=== PATIENT | female | born 1965 | race Caucasian/White ===

== ENCOUNTER 2017-06-06 05:17 | Inpatient (IN) | payer OTHER ==
[2017-05-31 15:59] VITALS: BMI 28.0
--- NOTE | 2017-05-31 16:24 | PAT Medication Instructions ---
Service Date May 31, 2017. Current Home Medication List Celecoxib (CeleBREX), 200 MG PO ON HOLD Medication Instructions For Your Scheduled Surgery - Follow your surgeon's instructions for: Celecoxib (CeleBREX), 200 MG PO ON HOLD If you have any questions please call us at [phone] or [phone] or [phone]
[2017-05-31 16:29] LABS: BASO % 0.3 %; BASO ABS # 0.02 K/uL (0-0.2); EOS % 1.4 %; EOS ABS # 0.11 K/uL (0-0.5); HEMATOCRIT 39.2 % (37-47); HEMOGLOBIN 13.3 g/dL (12.0-16.0); IG# 0.01 K/uL (0.00-0.02); LYMPH % 38.2 %; LYMPH ABS # 2.98 K/uL (1.2-3.4); MEAN CELL VOLUME 84.3 fL (80-100); MEAN CORPUSCULAR HEMOGLOBIN 28.6 pg (25-34); MEAN CORPUSCULAR HGB CONC 33.9 g/dl (32-36); MEAN PLATELET VOLUME 8.6 fL (7.4-10.4); MONO % 9.4 %; MONO ABS # 0.73 K/uL (0.11-0.59); NEUT % 50.6 %; NEUT ABS # 3.95 K/uL (1.4-6.5); PLATELET COUNT 251 K/uL (130-400); RED CELL DISTRIBUTION WIDTH CV 13.4 % (11.5-14.5); RED CELL DISTRIBUTION WIDTH SD 40.7 fL (36.4-46.3)
[2017-05-31 16:45] LABS: PTT PATIENT 25.3 SECONDS (21.0-31.0)
[2017-05-31 16:48] LABS: ALBUMIN 3.6 gm/dl (3.4-5.0); CALCIUM 8.8 mg/dl (8.5-10.1); CREATININE 0.82 mg/dl (0.60-1.20); POTASSIUM 3.7 mmol/L (3.5-5.1)
--- NOTE | 2017-05-31 16:51 | DIAGNOSTIC IMAGING REPORT ---
CHEST 2 VIEWS ROUTINE CLINICAL HISTORY: Preoperative evaluation. COMPARISON STUDY: No previous studies for comparison. FINDINGS: Lung volumes are normal. Lungs are clear. No pneumothorax or pleural effusion is noted. Pulmonary vascularity is normal. Cardiac size is within normal limits. Mediastinal contours are unremarkable. IMPRESSION: No acute cardiopulmonary findings. Electronically signed by: Ryland Holbrook M.D. 05/31/2017 4:50 PM Dictated Date/Time: 05/31/2017 4:49 PM
[2017-06-01 06:27] LABS: HEMOGLOBIN A1C 5.2 % (4.5-5.6)
--- NOTE | 2017-06-02 15:02 | HISTORY & PHYSICAL EXAMINATION ---
DATE OF ADMISSION: 06/06/2017 CHIEF COMPLAINT: Left hip pain. HISTORY OF PRESENT ILLNESS: Ms. Sepulveda is a 51-year-old female with a 1 year history of left hip pain. The patient rates her pain is 10/10. She has pain with her daily activities. She has limited standing and walking tolerance. Pain is worse with weightbearing. The patient has had home exercise program and NSAIDS without relief. She has failed conservative treatment and is scheduled for left hip replacement. PAST MEDICAL HISTORY: Newly diagnosed hep C. She denies heart disease, diabetes or DVT. PAST SURGICAL HISTORY: Negative. SOCIAL HISTORY: The patient drinks 12 drinks per week. She smokes 1-2 cigarettes per day. She lives in a 2-story home. She lives with her granddaughter and her boyfriend. She is currently not working. FAMILY HISTORY: Negative for DVT. MEDICATIONS: Celebrex and Motrin. ALLERGIES: None. REVIEW OF SYSTEMS: See HPI. Ten other systems reviewed, all negative. PHYSICAL EXAMINATION: VITAL SIGNS: Height 5 feet 7, weight 171 pounds, BMI 27. GENERAL: This is a well-developed, well-nourished female who is alert and oriented x3. Mood and affect are appropriate. HEENT: Normocephalic, atraumatic. Mucous membranes are moist and intact. NECK: Supple without lymphadenopathy. HEART: Regular rate and rhythm without murmurs, rubs or gallops. LUNGS: Clear to auscultation without wheezes or rhonchi. ABDOMEN: Soft and nontender. Bowel sounds are equal and active. EXTREMITIES: No ecchymosis, redness or warmth. Range of motion of the hip is decreased range of motion and reproduces pain significantly in the joint. Her left lower extremity is shortened. She walks with an antalgic gait. X-RAY EXAMINATION: AP and lateral views showed joint space narrowing and osteophyte formation with cystic formation. IMPRESSION: Degenerative joint disease, left hip with avascular necrosis. PLAN: The patient will be admitted for a left total hip arthroplasty with Dr. Schroeder. We will plan on aspirin for DVT prophylaxis. The patient will have [facility] for home physical therapy.
[2017-06-06] VITALS (10 sets, daily range): BP systolic 122–172; BP diastolic 71–97; PULSE 61–90; TEMP 36.4–37; O2SAT 97–100; Ht 165.1 cm; Wt 77.2 kg
[~2017-06-06] VITALS: Ht 165.1 cm; Wt 77.2 kg
[~2017-06-06 05:17] MED LIST: CLB/200 PO
[2017-06-06] MEDS ORDERED: LACTATED RINGER'S 1000ML 500 ML IV SCH (06:00)
[2017-06-06] MEDS ORDERED: DEXAMETHASONE 4 MG TAB PO SCH (06:00)
[2017-06-06] MEDS ORDERED: FAMOTIDINE 20 MG TAB PO SCH (06:00)
[2017-06-06] MEDS ORDERED: ROPIVACAINE 5MG/ML 30 ML 150 MG, BUPIVACAINE 0.5% MPF INJ 30 ML, EpINEphrine HCL INJ 0.... INFIL SCH ×15 (06:00)
[2017-06-06] MEDS ORDERED: GABAPENTIN 300 MG CAP PO SCH (06:00)
[2017-06-06] MEDS ORDERED: CEFAZOLIN 1000MG IV PUSH 7.5 ML IV SCH (06:00)
[2017-06-06] MEDS ORDERED: ACETAMINOPHEN 500 MG TAB PO SCH (06:00)
[2017-06-06] MEDS ORDERED: CeleBREX 200 MG CAP PO SCH (06:00)
[2017-06-06] MEDS ORDERED: LACTATED RINGER'S 1000ML 1,000 ML IV SCH (06:00)
[2017-06-06] MEDS ORDERED: BUPIVACAINE 0.5 % 5 MG/1 ML PF 10ML VIAL ONE (06:29)
[2017-06-06] MEDS ORDERED: EpHEDrine SULFATE 50MG/5ML SYR ONE (06:59)
[2017-06-06] MEDS ORDERED: PROPOFOL IV EMULSION 10 MG/ML 20 ML VIAL ONE (06:59)
[2017-06-06] MEDS ORDERED: MIDAZOLAM HCL 1 MG/ML 2ML VIAL ONE ×2 (06:59→07:00)
[2017-06-06] MEDS ORDERED: LIDOCAINE HCL 2% 2 ML VIAL (20MG/ML) ONE (06:59)
[2017-06-06] MEDS ORDERED: FENTANYL CITRATE INJ 50 MCG/1 ML 2 ML VIAL ONE (06:59)
--- NOTE | 2017-06-06 07:04 | History & Physical Bridge Note ---
H&P Re-Evaluation Bridge Note: I have examined the patient, reviewed the History & Physical and in the interval since the performance of the History & Physical I have noted the following changes of clinical significance: No changes noted
[2017-06-06] MEDS ORDERED: POVIDONE-IODINE OP SOLN 30 ML BTL ONE (07:07)
[2017-06-06] MEDS ORDERED: BACITRACIN 50000 UNIT VIAL ONE (07:07)
[2017-06-06] MEDS: TRANEXAMIC ACID INJ 1,000 MG x 2 Bags IV SCH ×4 (07:31→14:16)
[2017-06-06] MEDS ORDERED: EpHEDrine SULFATE INJ 50 MG/ML AMP IV PRN ×2 (09:00)
[2017-06-06] MEDS ORDERED: PHENYLEPHRINE 100MCG/ML 5ML SYR IV PRN ×2 (09:00)
[2017-06-06] MEDS ORDERED: ONDANSETRON INJ 2 MG/ML 2 ML VIAL IV PRN ×2 (09:00)
[2017-06-06] MEDS ORDERED: ATROPINE SULFATE 0.1 MG/ML 5ML SYR IV PRN ×2 (09:00)
[2017-06-06] MEDS ORDERED: HYDROmorphone INJ 2 MG/ML SYR/VIAL IV PRN ×2 (09:00)
--- NOTE | 2017-06-06 09:29 | [facility] Post Operative Brief Note ---
Immediate Operative Summary Operative Date June 06, 2017. Pre-Operative Diagnosis Degenerative joint disease, left hip with avascular necrosis. Post-Operative Diagnosis Left Hip DJD, AVN Procedure(s) Performed Left EVETTE Surgeon Dr. Gunjan Schroeder Bookkeeping Machine Mechanic Surgeon(s) Aguilar Lott PA-C Estimated Blood Loss 350 Findings Consistent with Post-Op Diagnosis Fluids (cc crystalloids) 1200 Specimens femoral head Drains None Anesthesia Type MAC Spinal Regional Complication(s) none Disposition Disposition: Recovery Room / PACU
[2017-06-06] MEDS ORDERED: OXYCODONE HCL IR 5 MG TAB (IMMEDIATE RELEASE) PO PRN (09:45)
[2017-06-06] MEDS ORDERED: LORAZEPAM INJ 0.5 MG in SYRINGE 0.25 ML IV PRN (09:45)
[2017-06-06] MEDS ORDERED: MoRPHine SULFATE 4 MG/ML 1 ML CARP\\VIAL IV PRN (09:45)
--- NOTE | 2017-06-06 09:48 | [facility] Operative Report ---
Operative Report Operative Date June 06, 2017. Pre-Operative Diagnosis Degenerative joint disease, left hip with avascular necrosis. Post-Operative Diagnosis Degenerative joint disease, left hip with avascular necrosis. Procedure(s) Performed Left Total Hip Arthoplasty Surgeon Dr. Gunjan Schroeder Machine Icer Surgeon(s) Aguilar Lott PA-C Estimated Blood Loss 350mL Findings See dictated op note Fluids 1200 Specimens A: Left Femoral Head Drains None Anesthesia Type MAC Spinal Regional Complication(s) none Disposition Recovery Room / PACU Indications The patient is a 51-year-old female who presents with severe progressive left hip DJD and AVN with femoral head collapse who has failed outpatient conservative treatments. I indicated the patient for a total hip replacement and the risks and benefits were explained in detail which included but not limited to infection, bleeding, blood clot, damage to surrounding bone, nerves, vessels, soft tissue, hip dislocation, failure of the prosthesis, leg length discrepancy, need for additional surgery and . The patient agreed to proceed with replacement of the hip and informed consent was obtained. Appropriate clearances were obtained. Description of Procedure Following induction of adequate spinal anesthesia, the patient was transferred to the OR table and placed in lateral decubitus position with right hip down. The left hip was prepped and draped in the typical sterile fashion and a posterolateral/Arielle-Langenbeck incision was made. Subcutaneous tissue was sharply dissected. Electrocautery was utilized for hemostasis. The fascia was incised throughout the length of the wound and retracted with the Charnley retractor. The bursa was taken down and the short external rotators were identified. The piriformis was tagged with #1 Vicryl. The short external rotators and capsule were divided from the posterior aspect of the femur using electrocautery. The posterior capsule was tagged with #1 Vicryl. Both external rotators and posterior capsule were swept posterior and protected, along with protecting the sciatic nerve. The hip was dislocated by flexion and internally rotation in a controlled manner and exposure of the femoral neck was gained with an old-style Hohmann and a blunt cobra retractor. A femoral cutting guide was utilized for making the appropriate level femoral neck cut with reciprocating saw. The femoral head was removed, measured and reserved on the back table. Next, attention was turned to the acetabulum. A posterior and anterior offset retractor was placed to gain adequate exposure. Acetabular labrum as well as posterior capsule elements were removed using electrocautery and forceps. Fovea centralis was cleared of all soft tissue. Sequential reaming was performed starting at 44 mm and carried up to a 49 mm and decision was made to proceed with impaction of a 50 mm trabecular metal cup. This was impacted and held using a single 35 mm bone screw. The trial acetabular liner was placed at this time. Next, attention was turned to the proximal femur where a Bovie and pickup was used to further clear short external rotators from their insertion on the femur. Box osteotome and canal finder was used to gain access to the femoral canal and the lateral reamer on power was used to further open the proximal lateral canal. Sequentially rasping was carried up to a 6 which gave good fit and fill of the proximal femur. A trial reduction was carried out with a standard offset femoral neck component a 36+3.5 mm femoral head. The trial reduction was stable in all degrees of rotation with no [id number] impingement. The hip was dislocated, trial components were removed and access to the acetabulum was re-established. The trial liner was removed and the cup was irrigated to ensure all debris was removed. The final acetabular liner was inserted and properly seated in the cup. Access to the femur was once more gained and the size 6 femoral stem with standard offset was impacted into position. The hip was once more assessed with the 36+3.5 mm femoral head. Stability was accessed and found to be excellent with equal leg lengths. The hip was dislocated for the last time and the final 36+3.5 ceramic femoral head was impacted in place and the hip was reduced. Range of motion was checked once again and found to be stable. The wound was copiously irrigated with sterile saline solution. The chava- incisional soft tissue was injected utilizing [place] ortho mix which includes a combination of Ropivicaine 0.5% 150mg, Bupivicaine 0.5%/Epinephrine 1 :200,000 30ml, Toradol 30mg, Dexamethasone 4mg, Ketamine 10mg, Clonidine 100mcg and NSS 30ml Orthomix solution. The piriformis, external rotators and capsule were repaired to the greater trochanter through bone tunnels using #5 FiberWire. The fascia was closed using #1 Vicryl, subcutaneous tissue was closed using 2-0 Vicryl, and skin was closed with 3-0 V-lock suture and Dermabond Prineo. Sterile dressings were applied which included nisa, 4x4s and tegaderm adhesive dressing. The patient tolerated the procedure well and was transported to PACU in stable condition. Due to the complex nature of the procedure, the entire surgery was performed with the operational assistance of Leela Lott PA-C. The content assistant, under direct supervision, was involved in the actual performance of all aspects of the surgical procedure including patient positioning, hemostasis, tissue retraction, instrument management and wound closure. I attest to the content of the Intraoperative Record and any orders documented therein. Any exceptions are noted below.
--- NOTE | 2017-06-06 10:26 | Anesthesiology Progress Note ---
Anesthesia Post Op Note Date & Time June 06, 2017 at 10:26 Vital Signs Pain Intensity: 0 Vital Signs Past 12 Hours Date Time Temp Pulse Resp B/P (MAP) Pulse Ox O2 Delivery O2 Flow Rate FiO2 06/06/17 10:20 69 12 115/66 100 Nasal Cannula 3 06/06/17 10:10 55 12 111/71 100 Oxymask 10 06/06/17 10:00 55 12 127/66 100 Oxymask 10 06/06/17 09:52 36.2 69 120/75 16 Oxymask 10 06/06/17 06:00 36.8 90 20 172/97 100 Room Air Notes Mental Status: alert / awake / arousable, participated in evaluation Pt Amnestic to Procedure: Yes Nausea / Vomiting: adequately controlled Pain: adequately controlled Airway Patency, RR, SpO2: stable & adequate BP & HR: stable & adequate Hydration State: stable & adequate Anesthetic Complications: no major complications apparent
--- NOTE | 2017-06-06 10:37 | DIAGNOSTIC IMAGING REPORT ---
SINGLE VIEW PELVIS; SINGLE VIEW LEFT HIP CLINICAL HISTORY: Postoperative examination. FINDINGS: An AP portable view of the hips and pelvis with a crosstable lateral portable view of the left hip are obtained. A bipolar left hip arthroplasty is in near-anatomic alignment. A single cortical lag screw transfixes the acetabular cup. No acute fracture is identified. There are expected postoperative changes overlying the left hip including skin clips, subcutaneous gas, and soft tissue swelling. Moderate arthritic changes noted in the right hip. A small phlebolith is observed in the pelvis. IMPRESSION: Expected postoperative findings status post left hip arthroplasty. No acute fracture is seen. Electronically signed by: Yasmany Mcguire M.D. 06/06/2017 10:35 AM Dictated Date/Time: 06/06/2017 10:35 AM
[2017-06-06] MEDS: KETOROLAC TROMETHAMINE 30 MG/ML VIAL IV. SCH ×2 (14:17→21:00)
[2017-06-06] MEDS: SODIUM CHLORIDE 0.9% 1000ML 1,000 ML IV SCH ×2 (14:17→21:00)
[2017-06-06] MEDS: ACETAMINOPHEN 500 MG TAB PO SCH ×2 (14:18→21:02)
[2017-06-06] MEDS: CEFAZOLIN IV 1,000 MG in SYRINGE 0 ML IV SCH (15:47)
--- NOTE | 2017-06-06 17:49 | Orthopedic Progress Note ---
Orthopedic Progress Note Date of Service June 06, 2017. Subjective Additional Notes: Postoperative progress note Patient seen at bedside and ambulating in room, doing well, no acute issues, pain well controlled. Objective No apparent distress, alert and oriented 3 Left lower extremity is neurovascularly sensory intact, +2 dorsalis pedis pulse , compartments soft nontender, dressing clean dry and intact. Date Time Temp Pulse Resp B/P (MAP) Pulse Ox O2 Delivery O2 Flow Rate FiO2 06/06/17 15:40 37.0 82 17 127/76 (93) 99 Room Air 06/06/17 14:10 82 15 124/76 (92) 100 06/06/17 13:10 79 15 134/85 (101) 100 06/06/17 12:08 61 18 135/81 (99) 100 Nasal Cannula 2.0 06/06/17 11:38 63 18 122/80 (94) 100 Nasal Cannula 3.0 06/06/17 11:10 100 Nasal Cannula 3.0 06/06/17 11:10 100 Nasal Cannula 3.0 06/06/17 11:07 36.4 67 15 145/82 (103) 100 Nasal Cannula 3.0 06/06/17 10:50 37.6 55 14 141/78 100 Nasal Cannula 3 06/06/17 10:40 67 14 134/78 100 Nasal Cannula 3 06/06/17 10:30 52 14 144/77 100 Nasal Cannula 3 06/06/17 10:20 69 12 115/66 100 Nasal Cannula 3 06/06/17 10:10 55 12 111/71 100 Oxymask 10 06/06/17 10:00 55 12 127/66 100 Oxymask 10 06/06/17 09:52 36.2 69 120/75 16 Oxymask 10 06/06/17 06:00 36.8 90 20 172/97 100 Room Air Assessment & Plan Assessment: Status post left posterior total hip arthroplasty Plan: -Ancef x24 -DVT prophylaxis - ASA twice daily -Weight-bear as tolerates left lower extremity -Posterior hip precautions -PT/OT -A.m. labs -Postop x-ray: Well aligned well fixed left total hip prosthesis without evidence of fracture or dislocation
[2017-06-06] MEDS ORDERED: SENNA 8.6 MG TAB PO SCH (21:00)
[2017-06-06] MEDS: ASPIRIN 325 MG ECTAB PO SCH (21:01)
[2017-06-06] MEDS: DOCUSATE SODIUM 100 MG CAP PO SCH (21:01)
[2017-06-07] MEDS: CEFAZOLIN IV 1,000 MG in SYRINGE 0 ML IV SCH (00:02)
[2017-06-07 00:05] VITALS: O2SAT 100
[2017-06-07] MEDS: KETOROLAC TROMETHAMINE 30 MG/ML VIAL IV. SCH ×2 (02:31→07:39)
[2017-06-07 03:24] VITALS: BP 117/72; PULSE 93; TEMP 37.1; O2SAT 98
[2017-06-07] MEDS: ACETAMINOPHEN 500 MG TAB PO SCH ×2 (05:44→12:53)
[2017-06-07 06:49] LABS: BASO % 0.1 %; BASO ABS # 0.01 K/uL (0-0.2); EOS % 0.2 %; EOS ABS # 0.02 K/uL (0-0.5); HEMATOCRIT 30.2 % (37-47); HEMOGLOBIN 10.2 g/dL (12.0-16.0); IG# 0.04 K/uL (0.00-0.02); LYMPH % 18.9 %; LYMPH ABS # 2.43 K/uL (1.2-3.4); MEAN CELL VOLUME 84.1 fL (80-100); MEAN CORPUSCULAR HEMOGLOBIN 28.4 pg (25-34); MEAN CORPUSCULAR HGB CONC 33.8 g/dl (32-36); MONO % 10.6 %; MONO ABS # 1.36 K/uL (0.11-0.59); NEUT % 69.9 %; NEUT ABS # 9.01 K/uL (1.4-6.5); PLATELET COUNT 224 K/uL (130-400); RED CELL DISTRIBUTION WIDTH CV 13.3 % (11.5-14.5); RED CELL DISTRIBUTION WIDTH SD 40.5 fL (36.4-46.3); WHITE BLOOD COUNT 12.87 K/uL (4.8-10.8)
[2017-06-07] MEDS: SODIUM CHLORIDE 0.9% 1000ML 1,000 ML IV SCH (07:10)
[2017-06-07 07:25] LABS: CALCIUM 7.7 mg/dl (8.5-10.1); CREATININE 0.59 mg/dl (0.60-1.20); POTASSIUM 3.7 mmol/L (3.5-5.1)
[2017-06-07 07:40] VITALS: BP 113/69; PULSE 93; TEMP 36.9; O2SAT 99
[2017-06-07] MEDS ORDERED: RXC5 PO (07:55)
[2017-06-07] MEDS ORDERED: ASPEC325 PO (07:55)
[2017-06-07] MEDS ORDERED: ACET-24 PO (07:55)
[2017-06-07] MEDS ORDERED: SENN-61 PO (07:55)
[2017-06-07] MEDS ORDERED: ONDA-170 PO (07:55)
[2017-06-07] MEDS ORDERED: CLB/200 PO (07:55)
--- NOTE | 2017-06-07 07:57 | Discharge Instructions ---
Discharge Instructions Date of Service June 07, 2017. Admission Reason for Admission: Left Hip Osteoarthritis Discharge Discharge Diagnosis / Problem: sp left EVETTE Discharge Goals Goal(s): Decrease discomfort, Improve function, Increase independence Activity Recommendations Activity Limitations: per Instructions/Follow-up section . Instructions / Follow-Up Instructions / Follow-Up ACTIVITY RECOMMENDATIONS: SELF CARE INSTRUCTIONS AFTER TOTAL HIP REPLACEMENT Until the incision and soft tissues around your hip have healed, there is a possibility that the hip prosthesis could dislocate. A. Observe the following precautions to prevent dislocation: 1. Don't bend your hip greater than 90 degrees. 2. Avoid crossing your legs or ankles while standing or lying. 3. Sit with your feet placed 6 inches apart. 4. When sitting, keep your knees below your hips. Sit on a firm surface, avoid deep, soft chairs and couches. Use an elevated toilet seat in the bathroom. 5. Don't bend over at the waist. Use a long handled shoehorn and a sock aid to help you put on your shoes and socks. A operational assistant can help you supervisor picking crew objects that are too high or too low to reach. 6. Keep car riding to a minimum for at least one month after surgery. B. Your balance may be shaky for a while. Use crutches or a walker until directed by your doctor. C. Use hand rails when walking on stairs. D. Wear low heeled shoes with non-slip soles. E. Be sure that your floors are free of things that could trip you - throw rugs , electrical cords, small objects. Avoid wet and waxed floors, especially with crutches and canes. F. Try to walk several times a day with rest periods between. G. Continue with all the exercises taught to you in the hospital. Again, make walking a part of your daily routine. SPECIAL CARE INSTRUCTIONS: VERY IMPORTANT TO READ AND REVIEW A. You may still be at risk for phlebitis and blood clots. 1. Wear surgical stockings (MARIPOSA hose) for 2 weeks after surgery to improve circulation and reduce swelling. 2. Take Aspirin 325 mg twice daily for 4 weeks or as directed by your doctor. This is your blood thinner. 3. High risk patients may be prescribed a stronger blood thinner if necessary. 4. If you are on Coumadin normally, your family doctor/appliance painter and refinisher should monitor your blood work. Expect a phone call the day of or the day after bloodwork is drawn to adjust your dosage. B. You must take antibiotics before having dental work, bladder, bowel and other surgery. Your doctor will provide you with a permanent card to carry describing precautions. C. Call [facility] if you have a fever, redness or swelling around the incision, cloudy drainage from incision, or sudden increase in pain in your hip, not relieved by your regular pain medication. D. Please call the office at if you have any concerns or questions about your operation or recovery. * YOU MAY SHOWER, NO TUB BATHS UNTIL CLEARED BY YOUR DOCTOR. * WEAR MARIPOSA HOSE 20 HOURS PER DAY FOR 2 WEEKS. * YOU SHOULD USE A WALKER OR CRUTCHES FOR 2-4 WEEKS. THIS WILL HELP PREVENT STRAIN ON YOUR HIP MUSCLE AND ALLOW IT TO HEAL PROPERLY. YOU MAY WEAN TO A CANE TOLERATED. * MOST PATIENTS WILL HAVE HOME NURSING FOR THERAPY. IF YOU DECIDE TO DO OUTPATIENT PHYSICAL THERAPY, PLEASE SCHEDULE THIS 3 TIMES PER WEEK. * YOU MAY HAVE A LARGE, BAND-BABS LIKE DRESSING (SILVERON). THIS WILL REMAIN ON YOUR INCISION FOR 7 DAYS, THEN CAN BE REMOVED. IF INCISION IS LEAKING THROUGH DRESSING, PLEASE CALL THE OFFICE . FOLLOW UP VISIT: If appointment is not already scheduled: Please call [facility] to make a follow-up appointment for 2 weeks after your surgery at . Current Hospital Diet Patient's current hospital diet: Regular Diet Discharge Diet Recommended Diet: Regular Diet Procedures Procedures Performed: Left Total Hip Arthoplasty Pending Studies Studies pending at discharge: no Laboratory Results Hemoglobin A1c Test 05/31/17 16:05 Range/Units Estimated Average Glucose 103 mg/dl Hemoglobin A1c 5.2 4.5-5.6 % Medical Emergencies . Who to Call and When: Medical Emergencies: If at any time you feel your situation is an emergency, please call 911 immediately. . Non-Emergent Contact Non-Emergency issues call your: Surgeon . "Provider Documentation" section prepared by Donna Lott. . [place] Drug Monitoring Program Search Results: patient reviewed within database, no issues identified
[2017-06-07] MEDS: DOCUSATE SODIUM 100 MG CAP PO SCH (08:55)
[2017-06-07] MEDS: ASPIRIN 325 MG ECTAB PO SCH (08:56)
[2017-06-07] MEDS ORDERED: MULTIVITAMIN TAB PO SCH (09:00)
[2017-06-07] MEDS ORDERED: PANTOprazole SOD 40 MG TAB PO SCH (09:00)
[2017-06-07 12:15] VITALS: BP 100/56; PULSE 96; TEMP 36.8; O2SAT 99
--- NOTE | 2017-06-07 16:45 | Orthopedic Progress Note ---
Orthopedic Progress Note Date of Service June 07, 2017. Subjective Additional Notes: Patient seen, comfortable, no acute issues, pain well controlled Objective No apparent distress, alert and oriented 3 Left lower extremity is neurovascularly sensory intact, +2 dorsalis pedis pulse , compartments soft nontender, dressing clean dry and intact. Date Time Temp Pulse Resp B/P (MAP) Pulse Ox O2 Delivery O2 Flow Rate FiO2 06/07/17 12:15 36.8 96 16 100/56 (71) 99 Room Air 06/07/17 08:20 36.9 93 16 99 Room Air 06/07/17 07:40 36.9 93 16 113/69 (84) 99 Room Air 06/07/17 07:20 Room Air 06/07/17 03:24 37.1 93 14 117/72 (87) 98 Room Air 06/07/17 00:05 100 Room Air 3.0 06/06/17 23:26 36.6 85 16 122/71 (88) 97 Room Air 06/06/17 19:50 36.8 84 16 123/72 (89) 100 Room Air Laboratory Results 24 Hours: Test 06/07/17 06:20 White Blood Count 12.87 K/uL Red Blood Count 3.59 M/uL Hemoglobin 10.2 g/dL Hematocrit 30.2 % Mean Corpuscular Volume 84.1 fL Mean Corpuscular Hemoglobin 28.4 pg Mean Corpuscular Hemoglobin Concent 33.8 g/dl Platelet Count 224 K/uL Mean Platelet Volume 9.0 fL Neutrophils (%) (Auto) 69.9 % Lymphocytes (%) (Auto) 18.9 % Monocytes (%) (Auto) 10.6 % Eosinophils (%) (Auto) 0.2 % Basophils (%) (Auto) 0.1 % Neutrophils # (Auto) 9.01 K/uL Lymphocytes # (Auto) 2.43 K/uL Monocytes # (Auto) 1.36 K/uL Eosinophils # (Auto) 0.02 K/uL Basophils # (Auto) 0.01 K/uL Prothromb Time International Ratio 1.0 Prothrombin Time 10.5 SECONDS Assessment & Plan Assessment: Status post left posterior total hip arthroplasty, POD#1 Plan: -Ancef x24 -DVT prophylaxis - ASA twice daily -Weight-bear as tolerates left lower extremity -Posterior hip precautions -PT/OT -A.m. labs - hgb 10.2 -Postop x-ray: Well aligned well fixed left total hip prosthesis without evidence of fracture or dislocation -DC planning, home with home care today 06/07/17
[2017-06-07] MEDS ORDERED: CeleBREX 200 MG CAP PO SCH (21:00)
--- NOTE | 2017-06-09 13:25 | DISCHARGE SUMMARY ---
DISCHARGE DIAGNOSIS: Degenerative joint disease, left hip. SECONDARY DIAGNOSIS: None. CONSULTS: None. COMPLICATIONS: None. PROCEDURE: The patient underwent a left total hip arthroplasty with Dr. Schroeder on 06/06/2017. BRIEF HISTORY: Please see previously dictated history and physical. HOSPITAL SUMMARY: The patient was admitted on the above day for the above procedure. Procedure went without complication. Postop day 1, the patient was feeling well without complaints. She denied chest pain or shortness of breath. Vital signs were stable. She was afebrile. Dressing was clean, dry and intact. She was neurovascularly intact. Calves were soft and nontender. Hip was located. The patient began physical therapy per protocol. She was discharged to home later that day in stable condition. For further review please see the chart. Lab, x-ray data and discharge instructions as per chart.
== END 2017-06-07 14:51 | disposition home health service (06) | DRG 470 ==
LOC: C.ACU 05:17 → C.3E 06:57 → ENRESERV 10:33
PROVIDERS: ADMIT Orthopaedic Surgery; ATTEND Orthopaedic Surgery
PROC: 0SRB0JZ Replacement of Left Hip Joint with Synthetic Substitute, Open Approach (ICD-10-PCS; principal; 2017-06-06 07:15)
DX: M16.12 Unilateral primary osteoarthritis, left hip (principal); M87.051 Idiopathic aseptic necrosis of right femur; F17.200 Nicotine dependence, unspecified, uncomplicated